=== PATIENT | male | born 1950 | race Native Hawaiian/Other Pacific Islander ===

== ENCOUNTER 2021-05-20 16:45 | Emergency (ER) | payer BC, OTHER ==
[~2021-05-20] VITALS: Ht 162.6 cm; Wt 68.0 kg
[2021-05-20 16:45] VITALS: BP 109/54; TEMP 98.1
[2021-05-20 17:13] LABS: PLATELET COUNT 146 K/uL (142-355)
[2021-05-20 17:15] LABS: POTASSIUM 3.9 mmol/L (3.6-5.2)
[2021-05-20] MEDS ORDERED: ALEN70TA19 PO ×2 (21:40→21:42)
[2021-05-20] MEDS ORDERED: ASPI81TA4 PO (21:42)
[2021-05-20] MEDS ORDERED: LIPITOR20 MG PO (21:43)
[2021-05-20] MEDS ORDERED: EQL VITAMIN B500 MCG PO (21:44)
[2021-05-20] MEDS ORDERED: BENZ1TAB43 PO (21:45)
[2021-05-20] MEDS ORDERED: CLON0.5T36 PO (21:47)
[2021-05-20] MEDS ORDERED: CHOLECALCIFEROL PO (21:47)
[2021-05-20] MEDS ORDERED: DIVA125C PO (21:49)
[2021-05-20] MEDS ORDERED: TAMS0.4C PO (21:49)
[2021-05-20] MEDS ORDERED: ZIPR20CA PO (21:50)
[2021-05-20] MEDS ORDERED: MULTIPLE VITAMIN PO (21:52)
[2021-05-20] MEDS ORDERED: OMEPRAZOLE DR20 MG PO (21:52)
[2021-05-20] MEDS ORDERED: OYSTER CALCIUM/1 TAB PO (21:53)
[2021-05-20] MEDS ORDERED: SERTRALINE HYDR50 MG PO (21:54)
[2021-05-20] MEDS ORDERED: THIA100T8 PO (21:54)
== END 2021-05-20 18:20 | disposition still patient (30) ==
LOC: ED 16:45
PROVIDERS: Emergency Medicine Emergency Medical Services
DX: F33.9 Major depressive disorder, recurrent, unspecified (principal); F03.91 Unspecified dementia, unspecified severity, with behavioral disturbance; Z11.52 Encounter for screening for COVID-19; Z04.6 Encounter for general psychiatric examination, requested by authority
CPT/HCPCS: 80053; 85027; 87635; 93005; 99283; U0003